=== PATIENT | female | born 1955 | race American Indian/Alaskan Native ===

== ENCOUNTER 2018-07-10 01:10 | Emergency (ER) | payer SELFPAY ==
[2018-07-10] MEDS ORDERED: TESSALON PERLES PO ONE ×2 (02:18→02:19)
[2018-07-10] MEDS ORDERED: ATROVENT IH ONE (07:40)
[2018-07-10] MEDS ORDERED: PROVENTIL IH ONE (07:40)
[2018-07-10 08:07] LABS: Basophils % (Auto) 0.1 % (0.0-1.8); Eosinophils # (Auto) 0.4 K/mm3 (0.0-0.4); Eosinophils % (Auto) 4.3 % (0.0-4.3); Hematocrit 37.1 % (30.3-42.9); Hemoglobin 12.2 gm/dl (10.1-14.3); Lymphocytes # (Auto) 0.5 K/mm3 (1.2-5.4); Lymphocytes % (Auto) 6.4 % (13.4-35.0); Mean Corpuscular HGB Conc 33 % (30-34); Mean Corpuscular Hemoglobin 28 pg (28-32); Mean Corpuscular Volume 84 fl (79-97); Monocytes # (Auto) 0.6 K/mm3 (0.0-0.8); Monocytes % (Auto) 7.8 % (0.0-7.3); Platelet Count 254 K/mm3 (140-440); Red Blood Count 4.43 M/mm3 (3.65-5.03); Red Cell Distribution Width 14.6 % (13.2-15.2)
[2018-07-10 08:24] LABS: Bacteria,Urine 1+ /HPF (Negative); Bilirubin,Urine NEG (Negative); Blood,Urine NEG (Negative); Color,Urine Yellow (Yellow); Mucus,Urine FEW /HPF; Protein,Urine <15 mg/dL mg/dL (Negative)
[2018-07-10 08:26] LABS: Alanine Aminotransferase 20 units/L (7-56); Albumin 3.8 g/dL (3.9-5); BUN/Creatinine Ratio 30; Blood Urea Nitrogen 15 mg/dL (7-17); Calcium 9.2 mg/dL (8.4-10.2); Hemolysis Index 31
--- NOTE | 2018-07-10 08:38 | XRay Report ---
FINAL REPORT EXAM: XR CHEST ROUTINE 2V HISTORY: cough sob TECHNIQUE: Chest, two views PRIORS: None. FINDINGS: The heart size is normal. Mediastinal contours are normal. Pulmonary vasculature is not congested. The lungs are clear. There are no pleural effusion seen. There is no evidence of pneumothorax. IMPRESSION: There is no acute abnormality identified.
[2018-07-10] MEDS ORDERED: ROCEPHIN/NS 1 GM/50 ML 1 GM/50 ML BAG IV ONE (08:58)
[2018-07-10] MEDS ORDERED: NACL 0.9% 1000 ML 1,000 ML IV ONE (08:58)
--- NOTE | 2018-07-10 09:18 | Emergency Department Report ---
ED General Adult HPI - General Chief complaint: Upper Respiratory Infection Stated complaint: SOB COUGHING Time Seen by Provider: 07/10/18 07:42 Source: patient Mode of arrival: Ambulatory Limitations: No Limitations - History of Present Illness Initial comments: Patient is a 89 y/o aaf with hx asthma and bronchitis tx'd for bronchitis 1 week ago states unable to get nebulizer tx until next week due to cost , insurance will start next on symbicor, albuterol amoxicillin po , pt denies fever or chills, primary compliant is cough and noc wheezing, request cheaper inhaler , pt denies cp or sob at this time. pt drove to ed and is ambulatory without sob. Onset/Timin -: week(s) Radiation: non-radiation Severity scale (0 -10): 4 Quality: other (cough ) Consistency: intermittent Improves with: rest Worsens with: none Associated Symptoms: cough, other (wheezing ) Treatments Prior to Arrival: none - Related Data Previous Rx's Medication Instructions Recorded Last Taken Type Albuterol Sulfate [Ventolin HFA] 2 puff IH Q4H PRN #1 hfa.aer.ad 11/17/14 Unknown Rx Ibuprofen [Motrin 800 MG tab] 800 mg PO TID PRN #20 tablet 11/17/14 Unknown Rx Lisinopril/Hydrochlorothiazide 1 each PO QDAY #90 tablet 11/17/14 Unknown Rx [Zestoretic 20-25 mg] glipiZIDE [Glucotrol] 5 mg PO BID #120 tablet 11/17/14 Unknown Rx Lisinopril/Hydrochlorothiazide 1 tab PO QDAY #30 tab 07/22/15 Unknown Rx [Zestoretic 20-25 mg] glipiZIDE [Glucotrol Xl] 5 mg PO BID #60 tab.er.24 07/22/15 Unknown Rx Albuterol Sulfate [Ventolin HFA] 2 puff IH Q4H PRN #1 hfa.aer.ad 06/30/18 Unknown Rx Amoxicillin/Potassium Clav 1 each PO BID #20 tablet 06/30/18 Unknown Rx [Augmentin 875-125 Tablet] Fluticasone/Salmeterol [Advair 1 puff IH BID #1 disk.w.dev 06/30/18 Unknown Rx Diskus 500-50 mcg] Loratadine [Claritin] 10 mg PO DAILY #30 tablet 06/30/18 Unknown Rx ALBUTEROL NEB's [Proventil 0.083% 2.5 mg IH Q4H PRN #25 vial 07/10/18 Unknown Rx NEBS] Acetaminophen [Tylenol] 650 mg PO QID PRN #30 capsule 07/10/18 Unknown Rx Azithromycin [Zithromax Z-JR] 250 mg PO DAILY #6 tab 07/10/18 Unknown Rx Nebulizer Accessories [Sootheneb 1 each MC PRN PRN #1 each 07/10/18 Unknown Rx [id number] Adult Mask] Nebulizer [Aeroneb Go Nebulizer] 1 each MC PRN PRN #1 each 07/10/18 Unknown Rx predniSONE [Deltasone] 40 mg PO QDAY 5 Days #20 tab 07/10/18 Unknown Rx Allergies Allergy/AdvReac Type Severity Reaction Status Date / Time Latex, Natural Rubber AdvReac Rash Verified 11/17/14 09:45 ED Review of Systems ROS: Stated complaint: SOB COUGHING Other details as noted in HPI Constitutional: denies: chills, fever Eyes: denies: eye pain, eye discharge, vision change ENT: ear pain, throat pain, congestion Respiratory: cough, wheezing Cardiovascular: denies: chest pain, palpitations Endocrine: no symptoms reported Gastrointestinal: denies: abdominal pain, nausea, diarrhea Genitourinary: denies: urgency, dysuria, discharge Musculoskeletal: as per HPI Skin: denies: rash, lesions Neurological: denies: headache, weakness, paresthesias Psychiatric: denies: anxiety, depression Hematological/Lymphatic: denies: easy bleeding, easy bruising ED Past Medical Hx - Past Medical History Previous Medical History?: Yes Hx Hypertension: Yes Hx Diabetes: Yes Hx Asthma: Yes - Surgical History Past Surgical History?: No - Social History Smoking Status: Never Smoker Substance Use Type: None - Medications Home Medications: Home Medications Medication Instructions Recorded Confirmed Last Taken Type Albuterol Sulfate [Ventolin HFA] 2 puff IH Q4H PRN #1 hfa.aer.ad 11/17/14 Unknown Rx Ibuprofen [Motrin 800 MG tab] 800 mg PO TID PRN #20 tablet 11/17/14 Unknown Rx Lisinopril/Hydrochlorothiazide 1 each PO QDAY #90 tablet 11/17/14 Unknown Rx [Zestoretic 20-25 mg] glipiZIDE [Glucotrol] 5 mg PO BID #120 tablet 11/17/14 Unknown Rx Lisinopril/Hydrochlorothiazide 1 tab PO QDAY #30 tab 07/22/15 Unknown Rx [Zestoretic 20-25 mg] glipiZIDE [Glucotrol Xl] 5 mg PO BID #60 tab.er.24 07/22/15 Unknown Rx Albuterol Sulfate [Ventolin HFA] 2 puff IH Q4H PRN #1 hfa.aer.ad 06/30/18 Unknown Rx Amoxicillin/Potassium Clav 1 each PO BID #20 tablet 06/30/18 Unknown Rx [Augmentin 875-125 Tablet] Fluticasone/Salmeterol [Advair 1 puff IH BID #1 disk.w.dev 06/30/18 Unknown Rx Diskus 500-50 mcg] Loratadine [Claritin] 10 mg PO DAILY #30 tablet 06/30/18 Unknown Rx ALBUTEROL NEB's [Proventil 0.083% 2.5 mg IH Q4H PRN #25 vial 07/10/18 Unknown Rx NEBS] Acetaminophen [Tylenol] 650 mg PO QID PRN #30 capsule 07/10/18 Unknown Rx Azithromycin [Zithromax Z-JR] 250 mg PO DAILY #6 tab 07/10/18 Unknown Rx Nebulizer Accessories [Sootheneb 1 each MC PRN PRN #1 each 07/10/18 Unknown Rx [id number] Adult Mask] Nebulizer [Aeroneb Go Nebulizer] 1 each MC PRN PRN #1 each 07/10/18 Unknown Rx predniSONE [Deltasone] 40 mg PO QDAY 5 Days #20 tab 07/10/18 Unknown Rx ED Physical Exam - General Limitations: No Limitations General appearance: alert, in no apparent distress - Head Head exam: Present: atraumatic, normocephalic - Eye Eye exam: Present: normal appearance, PERRL, EOMI Pupils: Present: normal accommodation - ENT ENT exam: Present: normal orophraynx, mucous membranes moist, TM's normal bilaterally, normal external ear exam - Expanded ENT Exam Expanded Ear exam: Present: normal external inspection Mouth exam: Present: normal external inspection Throat exam: Positive: tonsillar erythema, tonsillomegaly, other (uvula midline no stidor no exudate ). Negative: tonsillar exudate, R peritonsillar mass, L peritonsillar mass - Neck Neck exam: Present: normal inspection, full ROM. Absent: tenderness, meningismu s, lymphadenopathy, thyromegaly - Respiratory Respiratory exam: Present: normal lung sounds bilaterally. Absent: respiratory distress, wheezes, stridor, chest wall tenderness - Cardiovascular Cardiovascular Exam: Present: normal rhythm, tachycardia, normal heart sounds. Absent: systolic murmur, diastolic murmur, rubs, gallop - GI/Abdominal GI/Abdominal exam: Present: soft, normal bowel sounds. Absent: tenderness, mass, hernia - Rectal Rectal exam: Present: deferred - Extremities Exam Extremities exam: Present: normal inspection - Back Exam Back exam: Present: normal inspection, full ROM. Absent: tenderness, CVA tenderness (R), CVA tenderness (L), rash noted - Neurological Exam Neurological exam: Present: alert, oriented X3, CN II-XII intact, normal gait - Psychiatric Psychiatric exam: Present: normal affect, normal mood - Skin Skin exam: Present: warm. Absent: dry ED Course Vital Signs 07/10/18 07/10/18 07/10/18 01:27 08:30 09:15 Temperature 97.8 F 98.2 F Pulse Rate 119 H 117 H Pulse Rate [ 87 Posterior] Respiratory 20 22 Rate Respiratory 15 Rate [Posterior ] Blood Pressure 135/72 Blood Pressure 141/66 [Left] O2 Sat by Pulse 99 98 Oximetry 07/10/18 09:45 Temperature Pulse Rate Pulse Rate [ 90 Posterior] Respiratory Rate Respiratory 18 Rate [Posterior ] Blood Pressure Blood Pressure [Left] O2 Sat by Pulse Oximetry ED Medical Decision Making - Lab Data Result diagrams: 07/10/18 07:52 07/10/18 07:52 Labs 07/10/18 07/10/18 07/10/18 07:52 07:52 08:00 WBC 8.1 RBC 4.43 Hgb 12.2 Hct 37.1 MCV 84 MCH 28 MCHC 33 RDW 14.6 Plt Count 254 Lymph % (Auto) 6.4 L [place] % (Auto) 7.8 H Eos % (Auto) 4.3 Baso % (Auto) 0.1 Lymph # 0.5 L [place] # 0.6 Eos # 0.4 Baso # 0.0 Seg Neutrophils % 81.4 H Seg Neutrophils # 6.6 Sodium 141 Potassium 3.6 Chloride 101.9 Carbon Dioxide 27 Anion Gap 16 BUN 15 Creatinine 0.5 L Estimated GFR > 60 BUN/Creatinine Ratio 30 Glucose 210 H Calcium 9.2 Total Bilirubin 0.60 AST 18 ALT 20 Alkaline Phosphatase 89 Troponin T < 0.010 Total Protein 7.0 Albumin 3.8 L Albumin/Globulin Ratio 1.2 Urine Color Yellow Urine Turbidity Slightly-cloudy Urine pH 5.0 Ur Specific [place] 1.024 Urine Protein <15 mg/dl Urine Glucose (UA) Neg Urine Ketones Tr Urine Blood Neg Urine Nitrite Neg Urine Bilirubin Neg Urine Urobilinogen 2.0 Ur Leukocyte Esterase Mod Urine WBC (Auto) 14.0 H Urine RBC (Auto) 2.0 U Epithel Cells (Auto) 4.0 Urine Bacteria (Auto) 1+ Urine Mucus Few - EKG Data -: EKG Interpreted by Ma EKG shows normal: sinus rhythm Rate: tachycardia (mild 112 ) - EKG Data When compared to previous EKG there are: no significant change Interpretation: normal EKG (interp by ED attending. ) - Radiology Data Radiology results: report reviewed, image reviewed Findings [facility] [address] [place] [address] XRay Report Signed Patient: ENDY BURGER MR#: [id number] : 1955 Acct:[id number] Age/Sex: 63 / F ADM Date: 07/10/18 Loc: ED Attending Dr: Ordering Physician: MARSHAL FOUNTAIN NP Date of Service: 07/10/18 Procedure(s): XR chest routine 2V Accession Number(s): [id number] cc: MARSHAL FOUNTAIN NP Fluoro Time In Minutes: FINAL REPORT EXAM: XR CHEST ROUTINE 2V HISTORY: cough sob TECHNIQUE: Chest, two views PRIORS: None. FINDINGS: The heart size is normal. Mediastinal contours are normal. Pulmonary vasculature is not congested. The lungs are clear. There are no pleural effusion seen. There is no evidence of pneumothorax. IMPRESSION: There is no acute abnormality identified. Transcribed By: KARI Dictated By: OLIVA LEDEZMA MD Electronically Authenticated By: OLIVA LEDEZMA MD Signed Date/Time: 07/10/18 0838 - Medical Decision Making Condition UA consistent with UTI pos for WBC, and eukocytes , cxr normal, pt tx'd with rocephin 1gm ivpb, ns x 1 liter, plan albuterol neb for home are $4.oo for 25 vial, pt has nebulizer machine at home , predinsone, azithromycin, get symibicort on 07/13/2018 with start of insurance follow up with pcp in 2-3 days return to ed if symptoms worsen. pt verbalized agreement and understanding of same. Critical care attestation.: If time is entered above; I have spent that time in minutes in the direct care of this critically ill patient, excluding procedure time. ED Disposition Clinical Impression: Bronchitis UTI (urinary tract infection) Qualifiers: Urinary tract infection type: acute cystitis Hematuria presence: without hematuria Qualified Code(s): N30.00 - Acute cystitis without hematuria Disposition: TO HOME OR SELFCARE Is pt being admited?: No Does the pt Need Aspirin: No Condition: Stable Instructions: Chronic Bronchitis (ED), Urinary Tract Infection in Women (ED) Prescriptions: Acetaminophen [Tylenol] 650 mg PO QID PRN #30 capsule PRN Reason: pain ALBUTEROL NEB's [Proventil 0.083% NEBS] 2.5 mg IH Q4H PRN #25 vial PRN Reason: shortness of breath wheezing Azithromycin [Zithromax Z-JR] 250 mg PO DAILY #6 tab Nebulizer [Aeroneb Go Nebulizer] 1 each MC PRN PRN #1 each PRN Reason: as needed Nebulizer Accessories [Sootheneb [id number] Adult Mask] 1 each MC PRN PRN #1 each PRN Reason: as needed predniSONE [Deltasone] 40 mg PO QDAY 5 Days #20 tab Referrals: [facility] [Outside] - 3-5 Days Forms: Work/School Release Form(ED) Time of Disposition: 09:56
[2018-07-10 09:30] VITALS: BP 141/66
== END 2018-07-10 10:30 | disposition home or self-care (01) ==
LOC: ED 01:10
DX: J40 Bronchitis, not specified as acute or chronic (principal); N30.00 Acute cystitis without hematuria; I10 Essential (primary) hypertension; E11.9 Type 2 diabetes mellitus without complications; J45.909 Unspecified asthma, uncomplicated; Z91.040 Latex allergy status; Z91.09 Other allergy status, other than to drugs and biological substances
CPT/HCPCS: 36415; 71046; 80053; 81001; 84484; 85025; 93005; 93010; 94640; 96365; 99284; J0696; J7030

== ENCOUNTER 2020-03-01 23:28 | Emergency (ER) | payer OTHER ==
[2020-03-01 23:34] VITALS: BP 153/78
[2020-03-02] MEDS ORDERED: IBUPROFEN 800 MG TAB PO ONE (03:03)
[2020-03-02] MEDS ORDERED: ACETAMINOPHEN 500 MG TAB PO ONE (03:03)
[2020-03-02] MEDS ORDERED: ACETAMINOPHEN 500 MG TAB ONE (03:06)
[2020-03-02] MEDS ORDERED: IBUPROFEN 800 MG TAB ONE (03:06)
--- NOTE | 2020-03-02 05:23 | Emergency Department Report ---
ED Neck Pain/Injury HPI - General Chief Complaint: Neck Pain/Injury Stated Complaint: RT SIDE NECK PAIN Time Seen by Provider: 03/02/20 05:18 Mode of arrival: Ambulatory Limitations: No Limitations - History of Present Illness Initial Comments: Patient is a 65-year-old -[place] female who presents for right lateral neck muscle pain x1 day. States she woke up with a crick in her neck. She was able to complete her shift today at work however now she is having neck muscle spasms. Pain is described as 5/10 spasms exacerbated by movement. Pain is relieved by rest. Pain is reduced to 1/10 after ibuprofen given in ED tonight. Patient denies fall injury or trauma. There is no numbness tingling no dizziness or lightheadedness no nausea vomiting. Patient is alert oriented x3 amatory with steady gait. MD Complaint: neck pain - Related Data Previous Rx's Medication Instructions Recorded Last Taken Type Albuterol Sulfate [Ventolin HFA] 2 puff IH Q4H PRN #1 hfa.aer.ad 11/17/14 Unknown Rx Ibuprofen [Motrin 800 MG tab] 800 mg PO TID PRN #20 tablet 11/17/14 Unknown Rx Lisinopril/Hydrochlorothiazide 1 each PO QDAY #90 tablet 11/17/14 Unknown Rx [Zestoretic 20-25 mg] glipiZIDE [Glucotrol] 5 mg PO BID #120 tablet 11/17/14 Unknown Rx Lisinopril/Hydrochlorothiazide 1 tab PO QDAY #30 tab 07/22/15 Unknown Rx [Zestoretic 20-25 mg] glipiZIDE [Glucotrol Xl] 5 mg PO BID #60 tab.er.24 07/22/15 Unknown Rx Albuterol Sulfate [Ventolin HFA] 2 puff IH Q4H PRN #1 hfa.aer.ad 06/30/18 Unknown Rx Amoxicillin/Potassium Clav 1 each PO BID #20 tablet 06/30/18 Unknown Rx [Augmentin 875-125 Tablet] Fluticasone/Salmeterol [Advair 1 puff IH BID #1 disk.w.dev 06/30/18 Unknown Rx Diskus 500-50 mcg] Loratadine (Nf) [Claritin] 10 mg PO DAILY #30 tablet 06/30/18 Unknown Rx ALBUTEROL NEB's [Proventil 0.083% 2.5 mg IH Q4H PRN #25 vial 07/10/18 Unknown Rx NEBS] Acetaminophen [Tylenol] 650 mg PO QID PRN #30 capsule 07/10/18 Unknown Rx Azithromycin [Zithromax Z-JR] 250 mg PO DAILY #6 tab 07/10/18 Unknown Rx Nebulizer Accessories [Sootheneb 1 each MC PRN PRN #1 each 07/10/18 Unknown Rx [id number] Adult Mask] Nebulizer [Aeroneb Go Nebulizer] 1 each MC PRN PRN #1 each 07/10/18 Unknown Rx predniSONE [Deltasone] 40 mg PO QDAY 5 Days #20 tab 07/10/18 Unknown Rx guaiFENesin/CODEINE [Robitussin AC] 5 ml PO Q6H PRN #100 oral.liqd 04/04/19 Unknown Rx Acetaminophen/Codeine [Tylenol 1 tab PO Q6H PRN #12 tab 03/02/20 Unknown Rx /Codeine # 3 tab] Cyclobenzaprine HCl [Flexeril 5 MG 5 mg PO BID PRN #10 tablet 03/02/20 Unknown Rx TAB] Menthol/Camphor [[place] 1 applicatio TP TID PRN #1 tube 03/02/20 Unknown Rx Ointment] Allergies Allergy/AdvReac Type Severity Reaction Status Date / Time Latex, Natural Rubber AdvReac Rash Verified 11/17/14 09:45 ED Review of Systems ROS: Stated complaint: RT SIDE NECK PAIN Other details as noted in HPI Constitutional: denies: chills, fever Eyes: denies: eye pain, eye discharge, vision change ENT: denies: ear pain, throat pain Respiratory: denies: cough, shortness of breath, wheezing Cardiovascular: denies: chest pain, palpitations Endocrine: no symptoms reported Gastrointestinal: denies: abdominal pain, nausea, diarrhea Genitourinary: denies: urgency, dysuria, discharge Musculoskeletal: other (neck pain). denies: back pain, joint swelling, arthralgia Skin: denies: rash, lesions Neurological: denies: headache, weakness, paresthesias Psychiatric: denies: anxiety, depression Hematological/Lymphatic: as per HPI ED Past Medical Hx - Past Medical History Previous Medical History?: Yes Hx Hypertension: Yes Hx Diabetes: Yes Hx Asthma: Yes - Surgical History Past Surgical History?: No - Social History Smoking Status: Current Some Day Smoker - Medications Home Medications: Home Medications Medication Instructions Recorded Confirmed Last Taken Type Albuterol Sulfate [Ventolin HFA] 2 puff IH Q4H PRN #1 hfa.aer.ad 11/17/14 Unknown Rx Ibuprofen [Motrin 800 MG tab] 800 mg PO TID PRN #20 tablet 11/17/14 Unknown Rx Lisinopril/Hydrochlorothiazide 1 each PO QDAY #90 tablet 11/17/14 Unknown Rx [Zestoretic 20-25 mg] glipiZIDE [Glucotrol] 5 mg PO BID #120 tablet 11/17/14 Unknown Rx Lisinopril/Hydrochlorothiazide 1 tab PO QDAY #30 tab 07/22/15 Unknown Rx [Zestoretic 20-25 mg] glipiZIDE [Glucotrol Xl] 5 mg PO BID #60 tab.er.24 07/22/15 Unknown Rx Albuterol Sulfate [Ventolin HFA] 2 puff IH Q4H PRN #1 hfa.aer.ad 06/30/18 Unknown Rx Amoxicillin/Potassium Clav 1 each PO BID #20 tablet 06/30/18 Unknown Rx [Augmentin 875-125 Tablet] Fluticasone/Salmeterol [Advair 1 puff IH BID #1 disk.w.dev 06/30/18 Unknown Rx Diskus 500-50 mcg] Loratadine (Nf) [Claritin] 10 mg PO DAILY #30 tablet 06/30/18 Unknown Rx ALBUTEROL NEB's [Proventil 0.083% 2.5 mg IH Q4H PRN #25 vial 07/10/18 Unknown Rx NEBS] Acetaminophen [Tylenol] 650 mg PO QID PRN #30 capsule 07/10/18 Unknown Rx Azithromycin [Zithromax Z-JR] 250 mg PO DAILY #6 tab 07/10/18 Unknown Rx Nebulizer Accessories [Sootheneb 1 each MC PRN PRN #1 each 07/10/18 Unknown Rx [id number] Adult Mask] Nebulizer [Aeroneb Go Nebulizer] 1 each MC PRN PRN #1 each 07/10/18 Unknown Rx predniSONE [Deltasone] 40 mg PO QDAY 5 Days #20 tab 07/10/18 Unknown Rx guaiFENesin/CODEINE [Robitussin AC] 5 ml PO Q6H PRN #100 oral.liqd 04/04/19 Unknown Rx Acetaminophen/Codeine [Tylenol 1 tab PO Q6H PRN #12 tab 03/02/20 Unknown Rx /Codeine # 3 tab] Cyclobenzaprine HCl [Flexeril 5 MG 5 mg PO BID PRN #10 tablet 03/02/20 Unknown Rx TAB] Menthol/Camphor [Irmo [place] 1 applicatio TP TID PRN #1 tube 03/02/20 Unknown Rx Ointment] ED Physical Exam - General Limitations: No Limitations General appearance: alert, in no apparent distress - Head Head exam: Present: atraumatic, normocephalic - Eye Eye exam: Present: normal appearance, PERRL, EOMI Pupils: Present: normal accommodation - ENT ENT exam: Present: mucous membranes moist - Neck Neck exam: Present: normal inspection, tenderness, full ROM. Absent: meningismus, lymphadenopathy, thyromegaly (Even if you know if you do not notice) - Expanded Neck Exam Expanded Neck exam: Present: tenderness (right lateral neck muscle tenderness reproducible to deep palpation, no posterior vertebral point tenderness rom right restricted by spasm, there is no crepitus no swelling no deformity ). Absent: midline deformity, anterior neck swelling, thyroid mass, carotid bruit, tracheal deviation - Respiratory Respiratory exam: Present: normal lung sounds bilaterally. Absent: respiratory distress, wheezes, stridor, chest wall tenderness - Cardiovascular Cardiovascular Exam: Present: regular rate, normal heart sounds - GI/Abdominal GI/Abdominal exam: Present: soft, normal bowel sounds. Absent: distended, tenderness - Rectal Rectal exam: Present: deferred - Extremities Exam Extremities exam: Present: normal inspection, normal capillary refill - Back Exam Back exam: Present: normal inspection, full ROM. Absent: tenderness - Neurological Exam Neurological exam: Present: alert, oriented X3, CN II-XII intact, normal gait - Psychiatric Psychiatric exam: Present: normal affect, normal mood - Skin Skin exam: Present: warm, dry, intact, normal color. Absent: rash ED Course Vital Signs 03/01/20 23:31 Temperature 98.5 F Pulse Rate 86 Respiratory 20 Rate Blood Pressure 153/78 O2 Sat by Pulse 94 Oximetry ED Medical Decision Making - Medical Decision Making This is a straightforward neck muscle strain. Plan Tylenol with codeine, Flexeril 5 mg twice daily as needed, analgesic balm moist heat therapy follow-up with PCP in 2 to 3 days. Patient verbalizes agreement and understanding with discharge plan patient DC'd home in stable condition at this time pain is now 1/10 Per patient range of motion is improved. Critical care attestation.: If time is entered above; I have spent that time in minutes in the direct care of this critically ill patient, excluding procedure time. ED Disposition Clinical Impression: Neck muscle strain Qualifiers: Encounter type: initial encounter Qualified Code(s): S16.1XXA - Strain of muscle, fascia and tendon at neck level, initial encounter Disposition: DC-01 TO HOME OR SELFCARE Is pt being admited?: No Does the pt Need Aspirin: No Condition: Stable Prescriptions: Cyclobenzaprine HCl [Flexeril 5 MG TAB] 5 mg PO BID PRN #10 tablet PRN Reason: Muscle Spasm Menthol/Camphor [I[place]o [place] Ointment] 1 applicatio TP TID PRN #1 tube PRN Reason: pain Acetaminophen/Codeine [Tylenol /Codeine # 3 tab] 1 tab PO Q6H PRN #12 tab PRN Reason: pain Referrals: ANDREAS AMES MD [Referring] - 3-5 Days Forms: Work/School Release Form(ED) Time of Disposition: 05:26
== END 2020-03-02 05:30 | disposition home or self-care (01) ==
LOC: ED 23:28
DX: S16.1XXA Strain of muscle, fascia and tendon at neck level, initial encounter (principal); I10 Essential (primary) hypertension; E11.9 Type 2 diabetes mellitus without complications; J45.909 Unspecified asthma, uncomplicated; F17.200 Nicotine dependence, unspecified, uncomplicated; Z79.899 Other long term (current) drug therapy; Z91.040 Latex allergy status; Z88.8 Allergy status to other drugs, medicaments and biological substances; X58.XXXA Exposure to other specified factors, initial encounter; Y93.89 Activity, other specified; Y92.89 Other specified places as the place of occurrence of the external cause; Y99.8 Other external cause status
CPT/HCPCS: 99282